=== PATIENT | female | born 1990 | race Caucasian/White ===

== ENCOUNTER 2017-09-15 01:38 | Emergency (ER) | payer OTHER ==
[2017-09-15] MEDS ORDERED: Albuterol/Ipratropium NEB.SOL* Albuterol 2.5 MG/Ipratropium 0.5 MG 3 ML INH ONE (02:35)
[2017-09-15] MEDS ORDERED: Albuterol 2.5 MG/3 ML NEB.SOL* (0.083%) INH ONE (02:36)
[2017-09-15] MEDS ORDERED: Levofloxacin TAB* 750 MG PO ONE (03:44)
[2017-09-15] MEDS ORDERED: predniSONE TAB* 20 MG PO ONE (03:46)
[2017-09-15] MEDS ORDERED: Albuterol HFA INHALER* 8 gm MDI INH SCH (04:00)
[2017-09-15] MEDS ORDERED: Albuterol HFA INHALER* 8 gm MDI INH ONE (04:09)
--- NOTE | 2017-09-15 04:19 | ED ---
Conrad Ricardo Rebecca, scribed for Esau Siddiqi MD on 09/15/17 at 0232 . Respiratory - HPI Summary HPI Summary: Pt is a 26 y/o F who presents to ED c/o febrile illness with SOB and productive cough. Sx have been present for 2 days. Reports that this morning, her temperature was 99 [employer]. Mucous from cough is green. Took NyQuil [employer]. Additionally c/o nasal congestion. No PMHx. - History of Current Complaint Chief Complaint: EDUpperRespComplaint Stated Complaint: GENERAL ILLNESS Time Seen by Provider: 09/15/17 02:26 Hx Obtained From: Patient Onset/Duration: Still Present Current Severity: Moderate Pain Intensity: 5 Character: Cough (Productive) Sputum Color: Green Aggravating Factor(s): Nothing Alleviating Factor(s): Nothing Associated Signs and Symptoms: SOB, Nasal Congestion - Allergy/Home Medications Allergies/Adverse Reactions: Allergies Allergy/AdvReac Type Severity Reaction Status Date / Time No Known Allergies Allergy Verified 09/15/17 01:44 PMH/Surg Hx/FS Hx/Imm Hx Previously Healthy: Yes Endocrine/Hematology History: Denies: Hx Diabetes Cardiovascular History: Denies: Hx Coronary Artery Disease Infectious Disease History: No Infectious Disease History: Reports: Traveled Outside the [place] in Last 30 Days - [place] - Family History Known Family History: Negative: Diabetes - Social History Alcohol Use: None Substance Use Type: Reports: None Smoking Status (MU): Never Smoked Tobacco Review of Systems Positive: Fever Positive: Other - Nasal congestion Positive: Shortness Of Breath, Cough All Other Systems Reviewed And Are Negative: Yes Physical Exam - Summary Physical Exam Summary: VITAL SIGNS: Reviewed. GENERAL: ~Patient is a well-developed and nourished female who is lying comfortable in the stretcher. Patient is not in any acute respiratory distress. HEAD AND FACE: No signs of trauma. No ecchymosis, hematomas or skull depressions. No sinus tenderness. EYES: PERRLA, EOMI x 2, No injected conjunctiva, no nystagmus. EARS: Hearing grossly intact. Ear canals and tympanic membranes are within normal limits. MOUTH: Oropharynx within normal limits. NECK: Supple, trachea is midline, no adenopathy, no JVD, no carotid bruit, no c- spine tenderness, neck with full ROM. CHEST: Symmetric, no tenderness at palpation LUNGS: Mild wheezes bilaterally. No crackles. CVS: Regular rate and rhythm, S1 and S2 present, no murmurs or gallops appreciated. EXTREMITIES: FROM in all major joints, no edema, no cyanosis or clubbing. NEURO: Alert and oriented x 3. No acute neurological deficits. Speech is normal and follows commands. SKIN: Dry and warm Triage Information Reviewed: Yes Vital Signs On Initial Exam: Initial Vitals Temp Pulse Resp BP Pulse Ox 100 F 110 16 126/97 95 09/15/17 01:40 09/15/17 01:40 09/15/17 01:40 09/15/17 01:40 09/15/17 01:40 Vital Signs Reviewed: Yes Diagnostics - Vital Signs Vital Signs Temp Pulse Resp BP Pulse Ox 09/15/17 01:40 100 F 110 16 126/97 95 - Laboratory Lab Statement: Any lab studies that have been ordered have been reviewed, and results considered in the medical decision making process. - Radiology CXR Xray Interpretation: No Acute Changes - Pending official report. Radiology Interpretation Completed By: ED Physician Re-Evaluation - Re-Evaluation First Eval Re-Evaluation Time: 03:25 Change: Improved Comment: Discussed results and D/C. Disposition - Course Assessment/Plan: Pt is a 26 y/o F who presents to ED c/o febrile illness with SOB, nasal congestion and productive cough for 2 days. Reports that this morning , her temperature was 99 [employer]. Mucous from cough is green. Took NyQuil [employer]. CXR reveals no acute findings. Influenza A and B negative. In the ED course, pt received ventolin, duoneb and levaquin. Pt will be D/C to home with Dx of bronchitis with Rx for levaquin and deltasone. She understands and agrees. - Diagnoses Provider Diagnoses: Bronchitis Discharge - Sign-Out/Discharge Documenting (check all that apply): Discharge/Admit/Transfer - Discharge - Discharge Plan Condition: Stable Disposition: HOME Prescriptions: Levofloxacin TAB* [Levaquin TAB*] 750 mg PO DAILY #7 tab predniSONE TAB* [Deltasone TAB*] 40 mg PO DAILY #10 tab Patient Education Materials: Acute Bronchitis (ED) Referrals: No Primary Care Phys,NOPCP [Primary Care Provider] - [facility] [place] [facility]FERR[facility] [Outside] Additional Instructions: RETURN TO ED FOR ANY NEW OR WORSENING SYMPTOMS. The documentation as recorded by the Conrad adler Rebecca accurately reflects the service I personally performed and the decisions made by me, Esau Siddiqi MD.
[2017-09-15] MEDS ORDERED: NS 0.9% 1000 ML*IV.FLUID IV ONE (04:25)
[2017-09-15 04:57] LABS: ABS Basophils 0 10^3/ul (0-0.2); ABS Eosinophils 0.6 10^3/ul (0-0.6); ABS Lymphocytes 1.6 10^3/ul (1.0-4.8); ABS Monocytes 0.4 10^3/ul (0-0.8); ABS Neutrophils 7.2 10^3/ul (1.5-7.7); ABS Nucleated RBC 0 10^3/ul; Eosinophil % 6.5 % (0-6); Hematocrit 36 % (35-47); Lymphocyte % 16.2 % (25-47); Mean Corpuscular HGB Conc 34 g/dl (31-36); Mean Corpuscular Hemoglobin 30 pg (27-31); Mean Corpuscular Volume 89 fL (80-97); Mean Platelet Volume 8.6 um3 (7.4-10.4); Nucleated Red Blood Cells % 0; Platelet Count 216 10^3/ul (150-450); Red Cell Distribution Width 13 % (10.5-15); White Blood Count 9.9 10^3/ul (3.5-10.8)
[2017-09-15 05:13] LABS: EGFR Non-African American 59.1 (>60)
[2017-09-15] MEDS ORDERED: Potassium Chlor TAB* 20 MEQ TAB.ER PO ONE (05:16)
--- NOTE | 2017-09-15 05:39 | ED ---
Conrad Ricardo Rebecca, scribed for Esau Siddiqi MD on 09/15/17 at 0455 . Progress - Progress Note Progress Note: Upon the pt being discharged by the nurse, she noticed that the pt was dizzy and hypotensive. Blood work will be done and she will be given IV fluids. - Results/Orders Results/Orders: EKG: Done at 0444 Rate: Normal - 93 bpm Rhythm: Normal sinus rhythm Interpretation: Normal axis. Normal interval. No ischemic changes. Re-Evaluation - Re-Evaluation First Eval Re-Evaluation Time: Change: Improved Comment: Pt is feeling better now. Her BP is back up and is ready to be D/C. Course/Dx - Course Course Of Treatment: Upon the pt being discharged by the nurse, she noticed that the pt was dizzy and hypotensive. Blood work will be done and she will be given IV fluids. EKG is sinus rhythm with no ischemic changes. Upon reevaluation , the pt's BP has gone up, she feels better, and she is ready to be D/C. Understands and agrees. - Diagnoses Provider Diagnoses: Bronchitis Discharge - Sign-Out/Discharge Documenting (check all that apply): Discharge/Admit/Transfer - Discharge, Post- Discharge Follow Up - Discharge Plan Condition: Stable Disposition: HOME Prescriptions: Levofloxacin TAB* [Levaquin TAB*] 750 mg PO DAILY #7 tab predniSONE TAB* [Deltasone TAB*] 40 mg PO DAILY #10 tab Patient Education Materials: Acute Bronchitis (ED) Referrals: [facility] [place] [facility] [Outside] No Primary Care Phys,NOPCP [Primary Care Provider] - Additional Instructions: RETURN TO ED FOR ANY NEW OR WORSENING SYMPTOMS. The documentation as recorded by the Conrad adler Rebecca accurately reflects the service I personally performed and the decisions made by , Esau Siddiqi MD.
[2017-09-15 06:26] VITALS: BP 111/71
--- NOTE | 2017-09-15 08:35 | RAD ---
HISTORY: Cough COMPARISONS: None VIEWS: 1: frontal portable view of the chest at 2:53 AM FINDINGS: LINES AND TUBES: None. CARDIOMEDIASTINAL SILHOUETTE: The cardiomediastinal silhouette is normal for portable technique. PLEURA: The costophrenic angles are sharp. No pleural abnormalities are noted. LUNG PARENCHYMA: The lungs are clear. ABDOMEN: The upper abdomen is clear. There is no subphrenic gas. BONES AND SOFT TISSUES: No bone or soft tissue abnormalities are noted. IMPRESSION: NO ACTIVE CARDIOPULMONARY DISEASE.
== END 2017-09-15 06:23 | disposition home or self-care (01) ==
LOC: ED 01:38
DX: J40 Bronchitis, not specified as acute or chronic (principal); R42 Dizziness and giddiness
CPT/HCPCS: 36415; 71045; 80053; 83605; 84484; 84702; 85025; 85379; 86140; 87040; 87502; 93005; 99282; A9270-GY; J7512